=== PATIENT | female | born 1955 | race Caucasian/White ===

== ENCOUNTER 2023-08-31 09:11 | Outpatient (CLI) | payer MEDICARE | END 2023-08-31 09:12 | disposition home or self-care (01) | LOC: CSHMRI 09:11 | PROVIDERS: ATTEND Neurological Surgery | DX: D35.2 Benign neoplasm of pituitary gland (principal); D16.4 Benign neoplasm of bones of skull and face; H74.8X3 Other specified disorders of middle ear and mastoid, bilateral; R90.82 White matter disease, unspecified | CPT/HCPCS: 70553 ==

== ENCOUNTER 2024-06-14 09:17 | Outpatient (CLI) | payer MEDICARE | END 2024-06-14 09:18 | disposition home or self-care (01) | LOC: CSHMAMMO 09:17 | PROVIDERS: ATTEND Family Medicine | DX: Z12.31 Encounter for screening mammogram for malignant neoplasm of breast (principal) | CPT/HCPCS: 77063; 77067 ==

== ENCOUNTER 2025-06-18 09:02 | Outpatient (CLI) | payer MEDICARE | END 2025-06-18 09:03 | disposition home or self-care (01) | LOC: CSHMAMMO 09:02 | PROVIDERS: ATTEND Family Medicine | DX: Z12.31 Encounter for screening mammogram for malignant neoplasm of breast (principal); Z85.828 Personal history of other malignant neoplasm of skin | CPT/HCPCS: 77063; 77067 ==